=== PATIENT | male | born 1965 | race Caucasian/White ===

== ENCOUNTER → 2017-07-20 | Outpatient (CLI) | payer OTHER ==
[~2017-07-20] MED LIST: HYDR5SYP11 PO; LEVO1TAB33 PO; OMEP20CA9 PO; PRED20TA PO
--- NOTE | 2017-07-20 11:31 | DIAGNOSTIC IMAGING REPORT ---
L RIBS UNILATERAL WITH PA CHEST CLINICAL HISTORY: Atypical chest pain. Left upper anterior rib pain. No recent trauma. COMPARISON STUDY: Chest radiograph May 26, 2016 per FINDINGS: There is no pneumothorax or pleural effusion. There is no consolidation to suggest pneumonia. Pulmonary vascularity is normal. Cardiomediastinal silhouette is normal. No acute left rib fractures are identified. IMPRESSION: No pneumothorax. No acute left rib fractures identified by radiography. Electronically signed by: Charbel Angulo M.D. 07/20/2017 11:29 AM Dictated Date/Time: 07/20/2017 11:25 AM
== END | disposition home or self-care (01) ==
LOC: C.RADBC 10:47
PROVIDERS: ATTEND Physician Assistant Medical
DX: R07.89 Other chest pain (principal)

== ENCOUNTER → 2017-07-25 | Outpatient (CLI) | payer OTHER | END | disposition home or self-care (01) | LOC: C.PATHSPEC 17:02 | PROVIDERS: ATTEND Dermatology | DX: L57.0 Actinic keratosis (principal); L82.1 Other seborrheic keratosis; L81.4 Other melanin hyperpigmentation; D22.9 Melanocytic nevi, unspecified ==

== ENCOUNTER → 2017-07-31 | Outpatient (CLI) | payer OTHER ==
[2017-07-31 10:36] LABS: BASO % 0.1 %; BASO ABS # 0.01 K/uL (0-0.2); EOS ABS # 0.14 K/uL (0-0.5); HEMATOCRIT 47.3 % (42-52); HEMOGLOBIN 16.6 g/dL (14.0-18.0); IG# 0.01 K/uL (0.00-0.02); LYMPH % 31.4 %; MEAN CELL VOLUME 87.9 fL (80-100); MEAN CORPUSCULAR HEMOGLOBIN 30.9 pg (25-34); MEAN CORPUSCULAR HGB CONC 35.1 g/dl (32-36); MEAN PLATELET VOLUME 9.9 fL (7.4-10.4); MONO % 7.1 %; NEUT % 59.3 %; NEUT ABS # 4.14 K/uL (1.4-6.5); PLATELET COUNT 255 K/uL (130-400); RED CELL DISTRIBUTION WIDTH CV 13.3 % (11.5-14.5); RED CELL DISTRIBUTION WIDTH SD 42.7 fL (36.4-46.3)
[2017-07-31 11:06] LABS: ALBUMIN 3.9 gm/dl (3.4-5.0); ALT/SGPT 44 U/L (12-78); AST/SGOT 22 U/L (15-37); BLOOD UREA NITROGEN 18 mg/dl (7-18); CALCIUM 8.9 mg/dl (8.5-10.1); CARBON DIOXIDE 28 mmol/L (21-32); CREATININE 1.05 mg/dl (0.60-1.40); GLUCOSE 95 mg/dl (70-99); POTASSIUM 4.2 mmol/L (3.5-5.1); SODIUM 140 mmol/L (136-145)
[2017-07-31 11:16] LABS: ALKALINE PHOSPHATASE 93 U/L (45-117); CHOLESTEROL 176 mg/dl (0-200); LDL CHOLESTEROL CALCULATED 99 mg/dl; TOTAL PROTEIN 7.7 gm/dl (6.4-8.2)
== END | disposition home or self-care (01) ==
LOC: C.LAB1850 09:44
PROVIDERS: ATTEND Internal Medicine
DX: R07.89 Other chest pain (principal); Z68.36 Body mass index [BMI] 36.0-36.9, adult; Z13.6 Encounter for screening for cardiovascular disorders; Z12.5 Encounter for screening for malignant neoplasm of prostate

== ENCOUNTER → 2017-07-31 | Outpatient (CLI) | payer OTHER ==
--- NOTE | 2017-08-01 08:03 | MAMMOGRAPHY REPORT ---
MALE BILATERAL DIGITAL DIAGNOSTIC MAMMOGRAM TOMOSYNTHESIS WITH CAD AND TARGETED BILATERAL ULTRASOUND: 07/31/2017 CLINICAL HISTORY: 52-year-old male presents after his provider felt bilateral breast lumps. Patient reports other similar lumps throughout the remainder of his body. Family history of breast cancer = brother, whom he reports had a mastectomy and lymph node sampling. TECHNIQUE: Bilateral breast tomosynthesis in addition to standard 2D mammography was performed. Curre nt study was also evaluated with a Computer Aided Detection (CAD) system. COMPARISON: No prior exams were available for comparison. BREAST COMPOSITION: The breast parenchyma is nearly entirely fat. FINDINGS: 2 triangular palpable markers overlie the inferior left breast, and one triangular palpable marker overlies the inferior right breast, denoting the palpable lumps pointed out by the patient. Near the areas of concern, there are mixed but predominantly low density circumscribed subcentimeter masses. No calcifications, architectural distortion or suspicious dense masses seen bilaterally. Mo rphologically normal lymph nodes are seen in each axillary tail region/axilla. Targeted ultrasound was performed in the areas of palpable lumps pointed out by the patient in both b reasts. In the 4:00 left breast, 4 cm from the nipple in the area of first lump, there is an oval pa rallel circumscribed fat echotexture encapsulated mass measuring 2.0 x 0.7 x 1.1 cm, most likely repr esenting a lipoma. The second mass in the left breast is in the 8:00 axis, 5 cm from the nipple. Th is is oval, parallel, encapsulated and fatty echotexture, measuring 2.7 x 1.0 x 2.1 cm. The third mas s in the 4:00 right breast, 6 cm from the nipple, is fatty echotexture, slightly hyperechoic centrall y and encapsulated, measuring 1.6 x 1.7 x 1.0 cm. These findings are most compatible with benign lip omas but if there is interval increase in size or focal pain, surgical consultation for excision is r ecommended. IMPRESSION: ACR BI-RADS CATEGORY 2: BENIGN, TARGETED ULTRASOUND ACR BI-RADS CATEGORY 2: BENIGN 1. The bilateral palpable breast masses are most compatible with benign lipomas seen both mammograph ically and on ultrasound. It should be noted that it is difficult to differentiate between benign li pomas and liposarcomas on imaging and therefore if any of the masses should rapidly increased in size or become painful, surgical consultation for excision is recommended. 2. There is no mammographic or targeted sonographic evidence of malignancy in the breasts. No evide nce of gynecomastia. These results and recommendations were discussed with the patient at the time of the exam. Approximately 10% of breast cancers are not detected with mammography. A negative mammographic report should not delay biopsy if a clinically suggestive mass is present. Jacinta Johnson M.D. ay/:07/31/2017 11:15:34 [employer]: Юлия NOBLE)([place]), [facility] letter sent: Normal 1/2 BI-RADS Code: ACR BI-RADS Category 2: Benign Ultrasound BI-RADS: ACR BI-RADS Category 2: Benign
== END | disposition home or self-care (01) ==
LOC: C.MAMM 09:08
PROVIDERS: ATTEND Physician Assistant Medical
DX: N63.10 Unspecified lump in the right breast, unspecified quadrant (principal); N63.20 Unspecified lump in the left breast, unspecified quadrant

== ENCOUNTER → 2017-08-13 | Outpatient (CLI) | payer OTHER | END | disposition home or self-care (01) | LOC: C.PATHSPEC 17:56 | PROVIDERS: ATTEND Plastic Surgery | DX: L98.9 Disorder of the skin and subcutaneous tissue, unspecified (principal) ==